=== PATIENT | female | born 1970 | race Asian ===

== ENCOUNTER 2016-09-16 06:05 | Day surgery (SDC) | payer OTHER ==
[2016-09-15 09:26] LABS: BASOPHILS # (AUTO) 0.1 K/uL (0.00-0.22); EOSINOPHILS # (AUTO) 0.3 K/uL (0-0.4); HEMOGLOBIN 12.2 g/dL (12.0-16.0)
[2016-09-15 09:28] LABS: BASOPHILS % (AUTO) 3.5 % (0.0-2.0); HEMATOCRIT 38.7 % (36-48); LYMPHOCYTES # (AUTO) 0.9 K/uL (2.5-16.5); LYMPHOCYTES % (AUTO) 24.3 % (20.5-51.1); MEAN CORPUSCULAR HEMOGLOBIN 25 pg (27-31); MEAN CORPUSCULAR HGB CONC 32 g/dL (33-37); MEAN CORPUSCULAR VOLUME 78 fL (80-94); MONOCYTES # (AUTO) 0.4 K/uL (0.8-1.0); MONOCYTES % (AUTO) 9.8 % (1.7-9.3); NEUTROPHILS # (AUTO) 2.1 K/uL (1.8-7.7); NEUTROPHILS % (AUTO) 55.4 % (42.2-75.2); PLATELET COUNT (AUTO) 302 K/uL (140-450); RED BLOOD CELL COUNT(AUTO) 4.97 MIL/uL (4.20-5.40); RED CELL DISTRIBUTION WIDTH 15.2 % (11.6-13.7); WHITE BLOOD COUNT (AUTO) 3.8 K/uL (4.8-10.8)
[2016-09-15 09:47] LABS: ALBUMIN 3.6 g/dL (3.4-5.0); ANION GAP 13.9 (8-16); CARBON DIOXIDE 24.1 mmol/L (21-32); CREATININE 0.6 mg/dL (0.6-1.3); TOTAL BILIRUBIN 0.2 mg/dL (0.0-1.0); TOTAL PROTEIN, SERUM 7.2 g/dL (6.4-8.2)
[~2016-09-16] VITALS: Ht 157.5 cm; Wt 54.4 kg
[2016-09-16] MEDS ORDERED: ONDANSETRON 4 MG/2 ML VIAL IVP PRN ×2 (09:45→12:00)
[2016-09-16] MEDS ORDERED: ACETAMINOPHEN/CODEINE 300/30MG 1 TAB PO PRN (09:45)
[2016-09-16] MEDS ORDERED: IBUPROFEN 800 MG TAB PO PRN (09:45)
[2016-09-16] MEDS ORDERED: MORPHINE SULFATE 4 MG/ML SYR IM/IVP PRN (09:45)
[2016-09-16] MEDS ORDERED: DEXAMETHASONE 4 MG/ML VIAL ONE (11:46)
[2016-09-16] MEDS ORDERED: PROPOFOL 200 MG/20 ML VIAL IV ONE (11:46)
[2016-09-16] MEDS ORDERED: ONDANSETRON 4 MG/2 ML VIAL ONE (11:46)
[2016-09-16] MEDS ORDERED: fentaNYL 0.05 MG/ML VIAL ONE (11:52)
[2016-09-16] MEDS ORDERED: MIDAZOLAM 2 MG/2 ML VIAL ONE (11:52)
[2016-09-16] MEDS ORDERED: MEPERIDINE 25 MG/ML SYR ONE (11:53)
[2016-09-16] MEDS ORDERED: HYDROmorphone 1 MG/ML AMP IVP PRN (12:00)
[2016-09-16] MEDS ORDERED: LACTATED RINGERS 1,000 ML IV SCH (12:00)
[2016-09-16] MEDS ORDERED: MEPERIDINE 25 MG/ML SYR IVP PRN (12:00)
[2016-09-16] MEDS ORDERED: diphenhydrAMINE 50 MG/ML VIAL IVP PRN (12:00)
== END 2016-09-16 13:30 | disposition home or self-care (01) ==
LOC: MDS 06:05 → MMU 06:06 → MDS 13:30
PROVIDERS: ATTEND Obstetrics & Gynecology
DX: N92.1 Excessive and frequent menstruation with irregular cycle (principal); D25.9 Leiomyoma of uterus, unspecified; D64.9 Anemia, unspecified
CPT/HCPCS: 36415; 58120; 80053; 84702; 85025; 86886; 86900; 86901; J1100; J2175; J2250; J2405; J2704; J3010; J7120